=== PATIENT | female | born 1980 | race Caucasian/White ===

== ENCOUNTER → 2019-12-25 14:26 | Outpatient (CLI) | payer OTHER, SELFPAY ==
--- NOTE | ~2019-12-25 | MMUS_ITS ---
EXAMINATION: MM diagnostic jesse BI w estrellita, US breast RT limited HISTORY: Right breast lump TECHNIQUE: Bilateral full field ML, MLO and craniocaudal 3-D tomosynthesis images of both breasts and additional spot Tomosynthesis views of right breast were performed and synthetic 2-D images were gen erated. CAD analysis was submitted and interpreted. High resolution targeted right breast ultrasound was performed. COMPARISON: None BREAST PARENCHYMAL COMPOSITION: There are scattered areas of fibroglandular density. FINDINGS: MAMMOGRAPHIC FINDINGS: No suspicious mass, architectural distortion, malignant calcification, skin thickening or retraction of either breast is evident. ULTRASOUND: Targeted right breast ultrasound imaging at 3:00 5 cm from the nipple at the area of clinical complai nt of breast lump was performed. No suspicious mass, shadowing or cyst is evident. IMPRESSION: 1. No mammographic evidence of malignancy 2. Routine mammographic screening is recommended. BI-RADS Category 1: Negative Reviewed, dictated and finalized at location A. IMPRESSION: 1. No mammographic evidence of malignancy 2. Routine mammographic screening is recommended. BI-RADS Category 1: Negative
== END ==
PROVIDERS: PCP Family Medicine; Visit Provider Obstetrics & Gynecology Gynecology
DX: N63.10 Unspecified lump in the right breast, unspecified quadrant (principal)
CPT/HCPCS: 76642; 77062; 77066; G0279

== ENCOUNTER 2020-07-16 10:21 | Outpatient (CLI) | payer OTHER, SELFPAY ==
[2020-07-16 10:49] LABS: Hematocrit 39.3 % (37.0-47.0); Hemoglobin 13.4 g/dL (12.0-15.0); Mean Corpuscular HGB Conc 34.1 g/dl (32-36); Mean Corpuscular Hemoglobin 30.3 pg (26-34); Mean Corpuscular Volume 88.9 fl (80-100); Mean Platelet Volume 10.2 fl (7.4-10.4); Platelet Count Result 207 k/mm3 (150-375); Red Blood Count 4.42 M/mm3 (4.2-5.4); Red Cell Distribution Width 11.8 % (11.5-14.5); White Blood Count 5.9 K/mm3 (4.5-10.0)
[2020-07-16 11:34] LABS: Free T4 Free Thyroxine 0.96 ng/mL (0.78-2.19)
== END 2020-07-16 10:22 | disposition home or self-care (01) ==
PROVIDERS: PCP Family Medicine; Visit Provider Nurse Practitioner
DX: N92.0 Excessive and frequent menstruation with regular cycle (principal)
CPT/HCPCS: 36415; 84439; 84443; 85027

== ENCOUNTER → 2021-07-17 15:55 | Outpatient (CLI) | payer OTHER, SELFPAY ==
--- NOTE | ~2021-07-17 | US_ITS ---
EXAMINATION: US pelvic complete EXAM DATE: 07/17/2021 16:14 INDICATION: Excessive and frequent menstruation with regular cycle. TECHNIQUE: Pelvic transabdominal sonogram was performed. There are multiple grayscale and Doppler im ages available for interpretation. There is no prior study for comparison. FINDINGS: Uterus measures 9.5 x 5.2 x 6.0 cm, and is morphologically normal. Endometrial stripe benjamín sures 22 mm, mildly thickened. There is no free pelvic fluid. Right adnexa: The ovary measures 3.1 x 2.4 x 2.8 cm and is morphologically normal. Ovarian vascular f low confirmed. Left adnexa: The ovary measures 2.9 x 1.7 x 1.9 cm and is morphologically normal. Ovarian vascular fl ow confirmed. IMPRESSION: 1. Unremarkable pelvic ultrasound exam. Reviewed, dictated and finalized at location A.
== END ==
PROVIDERS: PCP Family Medicine; Visit Provider Obstetrics & Gynecology Gynecology
DX: N92.0 Excessive and frequent menstruation with regular cycle (principal)
CPT/HCPCS: 76856

== ENCOUNTER 2021-10-05 01:14 | Day surgery (SDC) | payer OTHER, SELFPAY ==
[2021-10-01 15:58] VITALS: BMI 22.4
--- NOTE | 2021-10-01 16:15 | PC.NURSE ---
Report to the Outpatient Waiting Room, entrance under the green pavilion located off [facility], at time _0915 on date _10/05/21. OR Time: 1115___. - You and your visitor will be asked a series of questions to screen for COVID 19 for your protection. - Only one visitor is allowed at this time. - The patient visitor is requested to leave or wait in car when not with patient. - A mask is required within the hospital. Patients may have clear liquids (water, carbonated beverages, clear teas, apple juice) until 3 hours prior to surgery with a maximum of 20 ounces. - No food from midnight until time of surgery - Infants may have breast milk until 4 hours before surgery, infant formula 6 hours prior to surgery. - Children will be allowed to drink immediately following surgery. If applicable, please bring a bottle or sippy cup to assist with drinking. Juice, water, soda, and popsicles are readily available. For infants on formula, please bring formula the day of surgery. Pacifiers are allowed. Take the following medications with a SIP of water the morning of surgery: n/a Medications to discontinue per physician vitamins_ Date to take last dose_10/02/21_ Please no make-up, nail nigerien, hairspray, perfume, deodorant, or body powder the day of surgery. No jewelry (including any body piercings) or valuables the day of surgery, leave them at home. Please take a shower or bath the night before, or the morning of, surgery with an antibacterial soap. Wear comfortable, loose fitting clothing. Children are encouraged to wear pajamas. - Jewelry must be removed prior to entering the operating room. Rings and piercings that are not removed may be cut off. - The hospital will not accept responsibility for valuables. - Please leave all valuables, including medications, at home the day of surgery. If you are going home after surgery, a licensed wedding transportation driver must drive you home. - NO public transportation without another adult. - We recommend that an adult stay with you for 24 hours following discharge. - We also recommend that you do not drive, make important decision, drink alcoholic beverages, or take any drugs that were not prescribed by your health care provider for at least 24 hours after your discharge time. For Pediatric surgeries, we recommend two adults accompany the child home (only one inside the building at this time). Follow any additional instructions given to you from your surgeon. If you or anyone in your household have experienced Covid symptoms in the past week, please notify your surgeon or the nurse liaison at the phone number below for possible testing. Telephone instructions given to Meena Bravo and asked if any additional questions and then verbalized understanding. Patient advised to call surgeon office or pre surgery nurse liaison [phone] if any additional questions.
--- NOTE | 2021-10-05 07:37 | WPDHPUPDATE1 ---
History and Physical Update Update Date/Time: 10/05/21 07:37 History and Physical has been reviewed, including an updated exam of the patient. There are NO changes in the patient's condition. Risks, benefits, and alternatives have been discussed and questions answered. Patient agrees to proceed with procedure.
--- NOTE | 2021-10-05 07:37 | PM.HPGS ---
History of Present Illness History of Present Illness Consent: Risks, benefits, and alternatives have been discussed and questions answered. Patient agrees to proceed with procedure. Chief complaint: Menorrhagia Narrative: Meena Bravo is a 41 year old female with menorrhagia. Patient changes her diva cup approximately every 3hours for 2 days and cycles are lasting approximately 10 days. In addition the patient has intermenstrual bleeding and bleeding after sex. Pelvic ultrasound was unremarkable however the endometrial stripe measured 22mm. It was recommended to proceed with further workup. Hysteroscopy D&C was reviewed. Risks of infection, bleeding, perforation, and possible pathology were reviewed. Patient agrees to proceed with plan. Review of Systems Review of Systems: not repeated day of surgery; patient states no changes in status [facility] Past Medical History Medical History (Updated 10/05/21 @ 07:40 by Shiela Saba MD) DVT (deep venous thrombosis) 2005 Factor 5 Leiden mutation, heterozygous (normal spontaneous vaginal delivery) X2 Surgical History Surgical History (Updated 10/05/21 @ 07:39 by Shiela Saba MD) H/O breast biopsy 2007 benign Family History Family History Father Hypertension Patient's father is in good health Mother Hypertension Patient's mother is in good health Grandparent Family history of cardiovascular disease Social History Social History (Updated 05/20/21 @ 16:01 by Corinne Israel CMA) Smoking packs per day: 1 Smoking cigarettes per day: 20.0 Years smoked: 8 Smoking pack-years: 8.00 Smoking status: Former smoker Tobacco type: cigarettes Second hand tobacco smoke exposure: No Smoking end date: 02/09/05 Alcohol intake: never Substance use: never Substance use type: does not use Last use: 10/01/2006 Living arrangements: with family Spiritual care concerns: No Meds Home Medications and Allergies Home Medications Medication Instructions Recorded Confirmed Type aspirin 81 mg tablet,delayed 81 mg PO DAILY 02/12/20 10/01/21 History release (Adult Aspirin Regimen) cetirizine 10 mg tablet (Zyrtec) 10 mg PO DAILY 02/12/20 10/01/21 History cholecalciferol (vitamin D3) 125 125 mcg PO DAILY 02/12/20 10/01/21 History mcg (5,000 unit) capsule olopatadine 0.1 % eye drops 1 drp ophthalmic (eye) .q6-8 hrs 02/12/20 10/01/21 History PRN Allergy Symptoms multivit with minerals-iron 18 1 tablet PO DAILY 10/01/21 10/01/21 History mg-folic ac 400 mcg-vit K 25 mcg tablet (Adults Multivitamin) Allergies Allergy/AdvReac Type Severity Reaction Status Date / Time No Known Allergies Allergy Verified 05/20/21 15:58 Exam Const: General: healthy appearing and alert Orientation/consciousness: patient oriented x3 Resp: Effort & Inspection: normal respiratory effort Auscultation: clear to auscultation bilaterally Cardio: Rate: regular rate Rhythm: regular rhythm GI: GI Palp: Yes Soft to palpation, No Tenderness to palpation present (GI) and No Palpable mass present : External Female Exam: normal external appearance Speculum Exam - Vagina: normal appearance of the vagina and normal vaginal discharge Speculum Exam - Cervix: normal appearance of the cervix Bimanual exam- vagina & uterus: uterine size normal and consistency normal Bimanual Exam- Adnexa, other: normal adnexae and No adnexal tenderness Neuro: General: patient oriented x3 Assessment and Plan Assessment and plan (1) Menorrhagia: Code(s): N92.0 - Excessive and frequent menstruation with regular cycle Status: Acute Assessment and Plan: Plan is to proceed with D&C hysteroscopy
[2021-10-05 09:34] VITALS: BP 125/72; PULSE 118; RESP 20; TEMP 36.8; O2SAT 99; BMI 22.8
[2021-10-05] MEDS: ACETAMINOPHEN 500 MG TABLET 1000 MG PO (09:43)
[2021-10-05] MEDS: ENOXAPARIN 40 MG/0.4 ML SYRINGE SUB-Q (09:44)
[2021-10-05] MEDS: LACTATED RINGERS 1,000 ML 30 ML IV CONT (09:54)
[2021-10-05 10:00] VITALS: PULSE 64
--- NOTE | 2021-10-05 10:25 | WPDANESEPPF ---
Anes - Initial Pre Proc Eval Procedure: Operation Date: 10/05/21 11:15 Proposed Procedures p Hysteroscopy with Dilation and Curettage - Shiela Saba MD Date/Time: 10/05/21 10:25 Surgeon: Shiela Saba MD Pre Op Diagnosis: Menorrhagia Patient Data Age: 41 Gender: F Height: 1.7 m Weight: 66 kg Last Vital Signs Temp 36.8 C 10/05/21 09:34 Pulse 118 H 10/05/21 09:34 Resp 20 10/05/21 09:34 BP 125/72 10/05/21 09:34 Pulse Ox 99 10/05/21 09:34 O2 Del Method Room Air 10/05/21 09:34 Allergies Allergy/AdvReac Type Severity Reaction Status Date / Time No Known Allergies Allergy Verified 10/05/21 09:40 Home Medications Medication Instructions Recorded Confirmed Type aspirin 81 mg tablet,delayed 81 mg PO DAILY 02/12/20 10/05/21 History release (Adult Aspirin Regimen) cetirizine 10 mg tablet (Zyrtec) 10 mg PO DAILY 02/12/20 10/05/21 History cholecalciferol (vitamin D3) 125 125 mcg PO DAILY 02/12/20 10/05/21 History mcg (5,000 unit) capsule olopatadine 0.1 % eye drops 1 drp ophthalmic (eye) .q6-8 hrs 02/12/20 10/05/21 History PRN Allergy Symptoms multivit with minerals-iron 18 1 tablet PO DAILY 10/01/21 10/05/21 History mg-folic ac 400 mcg-vit K 25 mcg tablet (Adults Multivitamin) Patient hx anesthesia problems: none Family hx anesthesia problems: none Results Review: All pre-operative results and documents have been reviewed as part of the pre-operative evaluation. PMFSH Past Medical History Medical History DVT (deep venous thrombosis) 2005 Factor 5 Leiden mutation, heterozygous (normal spontaneous vaginal delivery) X2 Surgical History Surgical History H/O breast biopsy 2007 benign Family History Family History Father Hypertension Patient's father is in good health Mother Hypertension Patient's mother is in good health Grandparent Family history of cardiovascular disease Social History Social History Smoking packs per day: 1 Smoking cigarettes per day: 20.0 Years smoked: 8 Smoking pack-years: 8.00 Smoking status: Former smoker Tobacco type: cigarettes Second hand tobacco smoke exposure: No Smoking end date: 02/09/05 Alcohol intake: never Substance use: never Substance use type: does not use Last use: 10/01/2006 Living arrangements: with family Spiritual care concerns: No Anes - Eval Final PreProcedure Day of Procedure 10/05/21 10:25 Patient weight: normal Heart: regular rate and rhythm Lungs: clear to auscultation Airway: Mallampati scale class II Neurological: alert and oriented Last oral intake: >/= 8 hours ASA classification: II Emergent: no Anesthetic plan: proceed Anesthesia type and monitoring: general GIVS and standard monitoring Results Review: All pre-operative results and documents have been reviewed as part of the pre-operative evaluation. Informed Consent: The patient's anesthetic plan and its attendant risks and benefits were discussed with the patient/family/POA. Questions were solicited and answers provided to the satisfaction of the patient/family/POA.
[2021-10-05] MEDS: SCOPOLAMINE 1.5 MG PATCH TRANSDERM (10:36)
--- NOTE | 2021-10-05 10:41 | SUR.PREOP ---
0930 PULSE 118 PER MONITOR, RECHECKED AT 1000, PULSE 64 AND REGULAR
--- NOTE | 2021-10-05 13:00 | W.PM.PROC2 ---
Procedure Note - Detailed Date of Procedure 10/05/21 Pre-op Diagnosis Menorrhagia Post-op Diagnosis Same Procedure Performed D&C hysteroscopy Surgeon Shiela Saba MD Anesthesia MAC and Local Findings uterus sounds to 9cm and appears grossly secretory Description of Procedure the patient is taken to the operating room and placed in the dorsal lithotomy position under anesthesia. She was prepped and draped in usual sterile fashion. [place] speculum was placed in the vagina and the cervix grasped on the anterior lip with a tenaculum. The cervix was injected in each quadrant with lidocaine. Uterus is sounded to 9cm. The cervix is serially dilated to an 8 Hegar. The diagnostic hysteroscope was placed with the stated findings. The hysteroscope was removed and the medium sharp curette used to curette the endometrium until a good uterine cry was noted in all areas. A large amount of tissue was obtained consistent with a secretory appearance. All instruments were then removed. Sponge, needle, and instrument counts are correct per the OR staff. Estimated Blood Loss 5 Drains No Packing No Pathology Yes ( Endometrial curettings) Complications No immediate complications Condition Stable Disposition PACU
[2021-10-05 13:05] VITALS: BP 106/68; PULSE 74; RESP 16; O2SAT 100
[2021-10-05 13:35] VITALS: BP 113/74; PULSE 70; RESP 16
== END 2021-10-05 14:05 | disposition home or self-care (01) ==
PROVIDERS: PCP Family Medicine; Visit Provider Obstetrics & Gynecology Gynecology
PROC: 0U5B8ZZ Destruction of Endometrium, Via Natural or Artificial Opening Endoscopic (ICD-10-PCS; CPT 58563; principal; 2021-10-05 11:15)
DX: N92.0 Excessive and frequent menstruation with regular cycle (principal); D68.51 Activated protein C resistance; Z86.718 Personal history of other venous thrombosis and embolism; Z79.82 Long term (current) use of aspirin; Z87.891 Personal history of nicotine dependence
CPT/HCPCS: 58558; 88305; A9270; J1100; J1650; J2250; J2405; J2704; J3010; J7030; J7120

== ENCOUNTER → 2022-02-16 07:19 | Outpatient (CLI) | payer OTHER, SELFPAY ==
--- NOTE | ~2022-02-16 | MM_ITS ---
EXAMINATION: MM screening jesse BI w estrellita HISTORY: Screening mammogram TECHNIQUE: Craniocaudal and mediolateral oblique 3-D tomosynthesis images were obtained and synthetic 2-D images were generated. Bilateral rotated lateral CC views. CAD analysis was submitted and interp reted. COMPARISON: 12/25/2019 limited right breast ultrasound and bilateral diagnostic mammography BREAST PARENCHYMAL COMPOSITION: There are scattered areas of fibroglandular density. FINDINGS: Stable mild fibroglandular asymmetry There is no evidence of suspicious mass, calcification , or architectural distortion to suggest malignancy in either breast. There has been no suspicious in terval change. IMPRESSION: 1. No mammographic evidence of malignancy. 2. Recommend routine screening mammography in one year. BI-RADS Category 1: Negative Reviewed, dictated and finalized at location A. N RESOURCES EXECUTIVE
== END ==
PROVIDERS: PCP Family Medicine; Visit Provider Nurse Practitioner
DX: Z12.31 Encounter for screening mammogram for malignant neoplasm of breast (principal)
CPT/HCPCS: 77063; 77067

== ENCOUNTER 2022-02-16 07:52 | Outpatient (CLI) | payer OTHER, SELFPAY ==
[2022-02-16 08:18] LABS: Hematocrit 39.7 % (37.0-47.0); Hemoglobin 13.4 g/dL (12.0-15.0); Mean Corpuscular HGB Conc 33.8 g/dl (32-36); Mean Corpuscular Hemoglobin 30.7 pg (26-34); Mean Corpuscular Volume 91.1 fl (80-100); Mean Platelet Volume 9.9 fl (7.4-10.4); Platelet Count Result 204 k/mm3 (150-375); Red Blood Count 4.36 M/mm3 (4.2-5.4); Red Cell Distribution Width 11.9 % (11.5-14.5); White Blood Count 5.6 K/mm3 (4.5-10.0)
[2022-02-16 08:46] LABS: Beta HCG Quantitative < 2.39 mIU/ML
[2022-02-16 09:12] LABS: Free T4 Free Thyroxine 0.94 ng/mL (0.78-2.19)
== END 2022-02-16 07:53 | disposition home or self-care (01) ==
PROVIDERS: PCP Family Medicine; Visit Provider Obstetrics & Gynecology Gynecology
DX: N93.9 Abnormal uterine and vaginal bleeding, unspecified (principal)
CPT/HCPCS: 36415; 84439; 84443; 84702; 85027

== ENCOUNTER 2022-06-26 08:32 | Outpatient (CLI) | payer OTHER, SELFPAY ==
[2022-06-26 09:37] LABS: Hematocrit 44.2 % (37.0-47.0); Hemoglobin 14.8 g/dL (12.0-15.0); Mean Corpuscular HGB Conc 33.5 g/dl (32-36); Mean Corpuscular Hemoglobin 30.7 pg (26-34); Mean Corpuscular Volume 91.7 fl (80-100); Mean Platelet Volume 10.1 fl (7.4-10.4); Platelet Count Result 199 k/mm3 (150-375); Red Blood Count 4.82 M/mm3 (4.2-5.4); White Blood Count 6.3 K/mm3 (4.5-10.0)
[2022-06-26 09:41] LABS: Alanine Aminotransferase 22 U/L (6-35); Albumin Level 4.6 g/dL (3.5-5.1); Alkaline Phosphatase 41 U/L (38-126); Anion Gap 6 mmol/L (8-16); Aspartate Amino Transferase 23 U/L (14-36); Bilirubin,Total 0.5 mg/dL (0.2-1.3); Blood Urea Nitrogen 12 mg/dL (7-17); Calcium 9.2 mg/dL (8.4-10.2); Carbon Dioxide 28 mmol/L (22-30); Chloride 109 mmol/L (98-107); Cholesterol 196 mg/dL (0-200); Estimated Glomerular Filt Rate > 60; Glucose 95 mg/dL (65-110); HDL Direct 60 mg/dL; Potassium 4.2 mmol/L (3.4-5.0); Sodium 143 mmol/L (137-145); Triglycerides 89 mg/dL (<150)
[2022-06-26 09:52] LABS: LDL Cholesterol Direct 112 mg/dL
== END 2022-06-26 08:33 | disposition home or self-care (01) ==
LOC: ANHLAB 08:33
PROVIDERS: PCP Family Medicine; Visit Provider Physician Assistant
DX: Z13.220 Encounter for screening for lipoid disorders (principal); Z13.1 Encounter for screening for diabetes mellitus; D68.51 Activated protein C resistance
CPT/HCPCS: 36415; 80053; 80061; 85027

== ENCOUNTER 2023-06-24 15:32 | Outpatient (CLI) | payer OTHER, SELFPAY ==
--- NOTE | ~2023-06-24 | MM_ITS ---
EXAMINATION: MM screening jesse BI w estrellita HISTORY: Screening mammogram TECHNIQUE: Craniocaudal and mediolateral oblique 3-D tomosynthesis images were obtained and synthetic 2-D images were generated. CAD analysis was submitted and interpreted. COMPARISON: 02/24/2022 bilateral screening mammogram 12/25/2019 bilateral diagnostic mammogram and limited right breast ultrasound BREAST PARENCHYMAL COMPOSITION: The breasts are heterogeneously dense, which may obscure small masses . FINDINGS: There is asymmetric density in the upper outer left breast. Diagnostic left mammogram is re commended, with ultrasound if required. Otherwise no suspicious mass, architectural distortion, malignant calcification, skin thickening or r etraction or significant new or developing density of either breast is noted. IMPRESSION: 1. Asymmetric increased density, upper outer left breast 2. Diagnostic left mammogram is recommended, with ultrasound if required BI-RADS Category 0: Incomplete: Needs additional imaging evaluation. Reviewed, dictated and finalized at location A.
== END 2023-06-24 15:33 ==
LOC: MICIMG 15:33
PROVIDERS: PCP Obstetrics & Gynecology Gynecology; Visit Provider Obstetrics & Gynecology Gynecology
DX: Z12.31 Encounter for screening mammogram for malignant neoplasm of breast (principal); R92.8 Other abnormal and inconclusive findings on diagnostic imaging of breast
CPT/HCPCS: 77063; 77067

== ENCOUNTER 2023-07-28 08:06 | Outpatient (CLI) | payer OTHER, SELFPAY ==
--- NOTE | ~2023-07-28 | MMUS_ITS ---
EXAMINATION: MM diagnostic jesse LT w estrellita, US breast LT limited HISTORY: Follow-up left breast asymmetry TECHNIQUE: Additional 3-D tomosynthesis images of the left breast were performed and synthetic 2-D im ages were generated. CAD analysis was submitted and interpreted. High resolution Limited left breast ultrasound was performed. COMPARISON: 06/23/2013 BREAST PARENCHYMAL COMPOSITION: Not dense: There are scattered areas of fibroglandular density. FINDINGS: MAMMOGRAPHIC FINDINGS: The areas of asymmetry are less apparent with spot compression views, likely superimposed fibroglandu lar content. No discrete mass is identified. There are no suspicious calcifications or focal architec tural distortion. ULTRASOUND: Limited left breast ultrasound: At 2:00, 7 cm from the nipple, there is a 4 mm cyst. At 12:00, 4 cm f rom the nipple, there are adjacent to millimeters cyst. No suspicious sonographic abnormalities to rangel ggest malignancy. IMPRESSION: 1. No evidence for malignancy in the left breast. Benign findings. 2. Routine yearly screening mammogram and regular clinical breast examination are recommended. BI-RADS Category 2: Benign finding(s). Reviewed, dictated and finalized at location A. IMPRESSION: 1. No evidence for malignancy in the left breast. Benign findings. 2. Routine yearly screening mammogram and regular clinical breast examination a re recommended. BI-RADS Category 2: Benign finding(s).
== END 2023-07-28 08:07 ==
LOC: MICIMG 08:07
PROVIDERS: PCP Obstetrics & Gynecology Gynecology; Visit Provider Obstetrics & Gynecology Gynecology
DX: R92.8 Other abnormal and inconclusive findings on diagnostic imaging of breast (principal)
CPT/HCPCS: 76642; 77061; 77065; G0279

== ENCOUNTER 2024-06-02 07:49 | Outpatient (CLI) | payer OTHER, SELFPAY ==
--- OUTSIDE RECORDS SUMMARY | 2024-06-02 07:53 | XMS_ITS | Clinical Summary ---
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 Surgical History Surgery Date Site/Laterality Comments BREAST BIOPSY Medical History Medical History Date Comments Frequent headaches Family History Medical History Relation Name Comments Non-Hodgkin's Lymphoma Maternal Grandfather Breast cancer Maternal Grandmother Skin cancer Paternal Grandfather Relation Name Status Comments Maternal Grandfather Maternal Grandmother Paternal Grandfather Social History Tobacco Use Types Packs/Day Years Used Date Smoking Tobacco: Former Personal Safety Answer Date Recorded Getting School Help Needed Not on file 06/24 Comments Unknown Sex and Gender Information Value Date Recorded Sex Assigned at Not on file Legal Sex Female 7:10 AM [employer] Gender Identity Not on file Sexual Orientation Not on file Obstetrics History Last Filed Vital Signs Vital Sign Reading Time Taken Comments Blood Pressure 107/63 06/06/2011 8:20 AM [employer] Pulse 79 06/06/2011 8:20 AM [employer] Temperature - - Respiratory Rate - - Oxygen Saturation 95% 06/04/2011 11:00 PM [employer] Inhaled Oxygen Concentration - - Weight 73 kg (160 lb 15 oz) 06/04/2011 9:[address] Height 170 cm (5' 6.93 ) 06/04/2011 9:19 AM [employer] Body Mass Index 25.26 06/04/2011 9:19 AM [employer] Plan of Treatment Not on file Insurance [address] [place], [place] [id number] Care Teams Cigarette Roller Relationship Specialty Start Date End Date Pilar Mederos MD PCP - General Family Medicine 08/22/20 Shiela Saba MD [address] [address] Referring Physician Gynecology 08/22/20
--- OUTSIDE RECORDS SUMMARY | 2024-06-02 07:53 | XMS_ITS | Patient Health Record ---
Author Organization [facility] Address [address] [place] [address] Care Team Providers Care Assessment Director Name Role Phone Pilar Mederos Primary Care Provider Latrice Benson Unavailable [phone] [employer], Provider Unavailable Unavailab le Allergies No Known Allergies Reason For Referral No Information Medications Medication SIG (Take, Route, Frequency, Duration) Notes Start Date End Date Status SLYND 4 mg 1 tab(s) orally once a day for 28 day(s) Active VITAMIN D3 25 mcg 1 tab(s) orally once a day for 30 day(s) Active ASPIRIN 81 mg 1 tab(s) orally once a day for 30 day(s) Active Olopatadine HCl 0.2 % 1 gtt in each affected eye once a day for 10 day(s) Active Montelukast Sodium 10 MG 1 tab(s) orally once a day (in the evening) for 30 day(s) Active PATADAY ONCE DAILY RELIEF 0.2% 1 GTT IN EACH AFFECTED EYE ONCE A DAY for 10 DAY(S) *Please review for potential replacement for e-prescription and drug interaction check* Active FLUTICASONE NASAL 50 mcg/inh 2 spray(s) in each nostril BID for 30 day(s) Active PROAIR HFA 90 MCG/INH 2 PUFF(S) INHALED EVERY 6 HOURS *Please review for potential replacement for e-prescription and drug interaction check* Active NASONEX 50 MCG/INH 2 SPRAY(S) INTRANASALLY ONCE A DAY for 30 DAY(S) *Please review for potential replacement for e-prescription and drug interaction check* Active CETIRIZINE 10 mg 1 tab(s) orally once a day for 30 days Active ZyrTEC Allergy 10 MG 1 tab(s) orally once a day Active Aspirin 81 MG 1 tab(s) orally once a day for 30 day(s) Active Cetirizine HCl 10 MG 1 tab(s) orally once a day for 30 days Active Slynd 4 MG 1 tab(s) orally once a day for 28 day(s) Active Fluticasone Propionate 50 MCG/ACT 2 spray(s) in each nostril BID for 30 day(s) Active Vitamin D3 25 MCG 1 tab(s) orally once a day for 30 day(s) Active NASAL WASHES N/A DIRECTED INTRANASALLY NEEDED for 30 *Please review for potential replacement for e-prescription and drug interaction check* Active ZYRTEC 10 mg 1 tab(s) orally once a day Active MONTELUKAST 10 mg 1 tab(s) orally once a day (in the evening) for 30 day(s) Active OLOPATADINE OPHTHALMIC 0.2% 1 gtt in each affected eye once a day for 10 day(s) Active Social History Tobacco Use: Social History Observation Description Date Details (start date - stop date) Former Smoker NA - NA Smoking Smart Form: Question Answer Notes Are you a: former smoker Problems Problem Type SNOMED Code ICD Code Onset Dates Problem Status W/U Status Risk Notes Problem 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 Problem Chronic allergic conjunctivitis (05434154) Other chronic allergic conjunctivitis (H10.45) Active confirmed Problem Allergic rhinitis caused by pollen (disorder) (08729829) Allergic rhinitis due to pollen (J30.1) Active confirmed Problem Allergic rhinitis (14984410) Other allergic rhinitis (J30.89) Active confirmed Problem Chronic rhinitis (61122817) Chronic rhinitis (J31.0) Active confirmed Problem Uncomplicated mild persistent asthma (472305948) Mild persistent asthma, uncomplicated (J45.30) Active confirmed Problem Uncomplicated moderate persistent asthma (758993250) Moderate persistent asthma, uncomplicated (J45.40) Active confirmed Problem Uncomplicated severe persistent asthma (668246507) Severe persistent asthma, uncomplicated (J45.50) Active confirmed Problem Atopic dermatitis (25598242) Atopic dermatitis, unspecified (L20.9) Active confirmed Problem Allergic rhinitis caused by animal hair and dander (609651489915536) Allergic rhinitis due to animal (cat) (dog) hair and dander (J30.81) Active confirmed Encounters Encounter Location Date Provider Diagnosis [address] [address] 09/24/2023 Provider Chidi Allergic rhinitis due to pollen J30.1 ; Other chronic allergic conjunctivitis H10.45 and Wheezing R06.2 Assessments Encounter Date Diagnosis (ICD Code) Assessment Notes Treatment Notes Treatment Clinical Notes Section Notes 09/24/2023 Allergic rhinitis due to pollen (ICD-10 - J30.1) 09/24/2023 Other chronic allergic conjunctivitis (ICD-10 - H10.45) 09/24/2023 Wheezing (ICD-10 - R06.2) Plan Of Treatment No Information Insurance Providers Payer Name Payer Address Payer Phone Subscriber Number Group Number Insured Name Patient Relationship to Insured Coverage Start Date Coverage End Date [employer] II [address] [place] [address] [id number] Meena Bravo Self - patient is the insured Medical (General) History Medical History History ICD Code Hereditary deficiency of other clotting factors D68.2 Surgical History Surgery Date(Month/Year) Breast biopsy 06/09/2017 Uterine biopsy 09/21/2021
--- OUTSIDE RECORDS SUMMARY | 2024-06-02 07:53 | XMS_ITS | Clinical Summary ---
Author Organization [facility] Administrative Offices Address [address] [place] [address] Care Team Providers Care Online Activist Name Role Phone Pilar Mederos MD Primary Care Provider [phone] Allergies No known active allergies Medications No known medications Active Problems No known active problems Resolved Problems Problem Noted Date Diagnosed Date Resolved Date Contractions 07/15/2009 07/16/2009 Labor Factor V Leiden ABpos GBSneg 07/15/2009 07/16/2009 Immunizations Immunization Administration Dates Next Due Influenza A (H1N1) Vaccine IM VFC 02/14/2009 Tdap Vaccine > 7 Yo IM VFC 07/16/2009 Family History Medical History Relation Name Comments Hypertension Father Cancer Maternal Grandfather Heart Disease Maternal Grandmother Hypertension Mother Breast Cancer Paternal Grandmother Relation Name Status Comments Father Maternal Grandfather Maternal Grandmother Mother Paternal Grandmother Social History Tobacco Use Types Packs/Day Years Used Date Smoking Tobacco: Former Alcohol Use Standard Drinks/Week Comments No 0 (1 standard drink = 0.6 oz pur e alcohol) Comments No Sex and Gender Information Value Date Recorded Sex Assigned at Not on file Legal Sex Female 5:48 AM BLENDING TANK HELPER Gender Identity Not on file Sexual Orientation Not on file Last Filed Vital Signs Vital Sign Reading Time Taken Comments Blood Pressure 118/70 06/12/2014 4:23 PM BLENDING TANK HELPER Pulse 98 07/17/2009 9:00 AM CDT Temperature 35.7 C (96.2 F) 07/17/2009 9:00 AM CDT Respiratory Rate 18 07/17/2009 9:00 AM CDT Oxygen Saturation 99% 06/23/2009 1:23 PM CDT Inhaled Oxygen Concentration - - Weight 64.4 kg (142 lb) 06/12/2014 4:26 PM BLENDING TANK HELPER Height 167.6 cm (5' 6 ) 06/12/2014 4:23 PM BLENDING TANK HELPER Body Mass Index 22.92 06/12/2014 4:23 PM BLENDING TANK HELPER Plan of Treatment Health Maintenance Due Date Last Done Comments HEPATITIS B VACCINES (1 of 3 - 19+ 3-dose series) 1999 CERVICAL CANCER SCREENING 06/12/20172014, 06/12/2014 DTAP/TDAP/TD VACCINES (2 - T d or Tdap) 07/17/2019 07/16/2009 BREAST CANCER SCREENING 2020 INFLUENZA VACCINE (#1) 2023 HPV VACCINES Aged Out No longer eligi ble based on patient's age to complete this topic PNEUMOCOCCAL VACCINE 0-64 YEARS Aged Out No longer eligible b ased on patient's age to complete this topic Procedures Procedure Name Priority Date/Time Associated Diagnosis Comments CERV/VAG CYTOPATH, THIN PREP AND HPV W/RFLX GENOTYPES 16, 18/45 Routine 06/12/2014 7:10 PM BLENDING TANK HELPER Routine gynecological examination from Last 3 Months or Most Recently Relevant to Health Maintenance Results * CERV/VAG CYTOPATH, THIN PREP AND HPV E6/E7 RFLX HPV 16, 18/45 (CP) (06/12/2014 7:10 PM BLENDING TANK HELPER) HPV E6/E7 Not Detected Not Detected [facility] Tag & See [facility] Comment: This test was performed using the APTIMA HPV Assay ([employer] This assay detects E6/E7 viral messenger RNA (mRNA) from 14 high-risk HPV types (16,18,31,33,35,39,45,51,52,56,58,59,66,68). Lab test performed by: [facility] [address] [place] [address] DOYLE GILBERT MD PAP INTERP Negative for intraepithelial lesion or malignancy. [facility] Tag [facility] See [facility] Comment: Performed by [facility], [address] [place] [address] Absorption Plant Operator Helper Pap Comment This Pap test has been evaluated with computer assisted technology. [facility] Tag [facility] See [facility] ADEQUACY: Satisfactory for evaluation. Endocervical/leong sformation zone component present. Age and/or menstrual status not provided [facility] Tag & See [facility] CLINICAL INFORMATION Information not provided [facility] LABORATORY SERVICES - [facility] SOURCE Information not provided [facility] PREV PAP: INFORMATION NOT PROVIDED [facility] BARREL CUTTER : MARK VILLANUEVA(ASCP) [facility] LABORATORY SERVICES - [facility] LAST MENSTRUAL PERIOD INFORMATION NOT PROVIDED [facility] SERVICES [facility] PREV BX: INFORMATION NOT PROVIDED [facility] Endocervical 06/12/2014 7:10 PM BLENDING TANK HELPER 06/13/2014 10:51 PM BLENDING TANK HELPER Comment:ENDOCERVICAL us Narciso Padron MD PATHOLOGY/CYTOLOGY ORDERABL ES Edited Result - Final [facility] SERVICES [facility] CLIA# [id number] [address] [place] [address] from Last 3 Months or Most Recently Relevant to Health Maintenance [place] [id number] [employer] Advance Directives For more information, please contact: [phone] * Full Code (Latest Code Status on File) Date Activated Date Inactivated Comments 07/15/2009 10:55 PM 07/17/2009 1:07 PM * Full Code Date Activated Date Inactivated Comments 07/15/2009 7:26 AM 07/15/2009 10:55 PM * Full Code Date Activated Date Inactivated Comments 07/15/2009 7:08 AM 07/15/2009 7:26 AM Care Teams Online Activist Relationship Specialty Start Date End Date Pilar Mederos MD [address] [place] [id number] PCP - General 01/16/09
--- OUTSIDE RECORDS SUMMARY | 2024-06-02 07:53 | XMS_ITS ---
Author Organization [facility] Address [address] [place] [address] Care Team Providers Care Manager Subway Name Role Phone Pilar Mederos Primary Care Provider UnavailLatrice Barnard Unavailable [phone] ZZ-Migration, Provider Unavailable Unavailab le REASON FOR VISIT Mult[facility] To [facility] Conversion Encounter Medications Medication SIG (Take, Route, Frequency, Duration) Notes Start Date End Date Status ZyrTEC Allergy 10 MG 1 tab(s) orally once a day Active Aspirin 81 MG 1 tab(s) orally once a day for 30 day(s) Active Slynd 4 MG 1 tab(s) orally once a day for 28 day(s) Active Fluticasone Propionate 50 MCG/ACT 2 spray(s) in each nostril BID for 30 day(s) Active NASAL WASHES N/A DIRECTED INTRANASALLY NEEDED for 30 *Please review for potential replacement for e-prescription and drug interaction check* Active Montelukast Sodium 10 MG 1 tab(s) orally once a day (in the evening) for 30 day(s) Active PATADAY ONCE DAILY RELIEF 0.2% 1 GTT IN EACH AFFECTED EYE ONCE A DAY for 10 DAY(S) *Please review for potential replacement for e-prescription and drug interaction check* Active PROAIR HFA 90 MCG/INH 2 PUFF(S) INHALED EVERY 6 HOURS *Please review for potential replacement for e-prescription and drug interaction check* Active NASONEX 50 MCG/INH 2 SPRAY(S) INTRANASALLY ONCE A DAY for 30 DAY(S) *Please review for potential replacement for e-prescription and drug interaction check* Active Cetirizine HCl 10 MG 1 tab(s) orally once a day for 30 days Active Olopatadine HCl 0.2 % 1 gtt in each affected eye once a day for 10 day(s) Active Vitamin D3 25 MCG 1 tab(s) orally once a day for 30 day(s) Active Encounters Encounter Location Date Provider Diagnosis [facility] [place] [address] 09/24/2023 Provider ELVA-Gonsalo Allergic rhinitis due to pollen J30.1 ; Other chronic allergic conjunctivitis H10.45 and Wheezing R06.2 Assessments Encounter Date Diagnosis (ICD Code) Assessment Notes Treatment Notes Treatment Clinical Notes Section Notes 09/24/2023 Allergic rhinitis due to pollen (ICD-10 - J30.1) 09/24/2023 Other chronic allergic conjunctivitis (ICD-10 - H10.45) 09/24/2023 Wheezing (ICD-10 - R06.2) Plan Of Treatment Medication Medication Name Sig Start Date Stop Date Notes Fluticasone Propionate 50 MCG/ACT 2 spray(s) in each nostril BID for 30 day(s) NASAL WASHES N/A DIRECTED INTRANASALLY NEEDED for 30 *Please review for potential replacement for e-prescription and drug interaction check* Montelukast Sodium 10 MG 1 tab(s) orally once a day (in the evening) for 30 day(s) PROAIR HFA 90 MCG/INH 2 PUFF(S) INHALED EVERY 6 HOURS *Please review for potential replacement for e-prescription and drug interaction check* Cetirizine HCl 10 MG 1 tab(s) orally onc e a day for 30 days Olopatadine HCl 0.2 % 1 gtt in each affe cted eye once a day for 10 day(s) Progress Notes * Declan YBARRAOB:1980 (44 yo F)Acc No.[id number]:09/24/2023 Patient: Meena PUENTES Provider: Shelli Brush :1980 A ge:43 Y S ex:Female Date:09/24/2023 Address:[address] [place], [place] [id number] Pcp:Pilar Mederos Subjective: * Chief Complaints: * 1 . Multum To [facility] Conversion Encounter. * Medical History: * Medications: T aking PATADAY ONCE DAILY RELIEF 0.2% SOLUTION 1 GTT IN EACH AFFECTED EYE ONCE A DAY , Notes to Pharmacist: *Please review for potential replacement for e-prescription and drug interaction check*, Taking NASONEX 50 MCG/INH SPRAY 2 SPRAY(S) INTRANASALLY ONCE A DAY , Notes to Pharmacist: *Please review for potential replacement for e-prescription and drug interaction check*, Taking ZyrTEC Allergy 10 MG Tablet 1 tab(s) orally once a day , Taking Aspirin 81 MG Tablet Delayed Release 1 tab(s) orally once a day , Taking Slynd 4 MG Tablet 1 tab(s) orally once a day , Taking Vitamin D3 25 MCG Tablet 1 tab(s) orally once a day Objective: * Vitals: Assessment: * Assessment: 1. A llergic rhinitis due to pollen - J30.1 (Primary) 2 . O ther chronic allergic conjunctivitis - H10.45 3 . W heezing - R06.2 Plan: * Treatment: 2. O ther chronic allergic conjunctivitis Continue Olopatadine HCl Solution, 0.2 %, 1 gtt, in each affected eye, once a day, 10 day(s). ? 3. W heezing Start Montelukast Sodium Tablet, 10 MG, 1 tab(s), orally, once a day (in the evening), 30 day(s), 30, Refills 2; C ontinue PROAIR HFA AEROSOL, 90 MCG/INH, 2 PUFF(S), INHALED, EVERY 6 HOURS, Notes to Pharmacist: *Please review for potential replacement for e-prescription and drug interaction check*. * Billing Information: * Visit Code: * Procedure Codes: * Electronic signature of Kathy STEVENSON-Migration on 06/02/2024 at 07:53 AM POLICE CHIEF DEPUTY Sign off status: Pending * Provider: Shelli paul Migration Date: 0 09/24/2023 Generated for Mago walker/Jackie/Kei on: 06/02/2024 07:53 AM POLICE CHIEF DEPUTY
--- OUTSIDE RECORDS SUMMARY | 2024-06-02 07:53 | XMS_ITS ---
Author Organization [facility] Address [address] [place] [address] Care Team Providers Care Raw Material Handler Name Role Phone Pilar Mederos Primary Care Provider Latrice Benson [phone] REASON FOR VISIT Cough follow-up Encounters Encounter Location Date Provider Diagnosis [facility] [address] [place] [address] 12/16/2022 Latrice Camacho Plan Of Treatment No Information Progress Notes * Declan YBARRAOB:1980 (44 yo F)Acc No.[id number]:12/16/2022 Progress Notes Patient: Meena PUENTES Provider: Chavez Camacho PA-C :1980 A ge:42 Y S ex:Female Date:12/16/2022 [facility] [id number] Pcp:Pilar Mederos Subjective: * Chief Complaints: * 1 . Cough follow-up. * Medical History: Objective: * Vitals: Assessment: Plan: * Treatment: * Billing Information: * Visit Code: * Procedure Codes: * Electronic signature of Bo Camacho PA-C, MPAS on 06/02/2024 at 07:53 AM PAPER BAG MAKING MACHINIST Sign off status: Pending * Provider: Chavez Camacho PA-C Date: 0 12/16/2022 Generated for Julianei denise/Fashante/eTransmitting on: 0 06/02/2024 07:53 AM PAPER BAG MAKING MACHINIST
--- OUTSIDE RECORDS SUMMARY | 2024-06-02 07:53 | XMS_ITS | Clinical Summary ---
Author Organization [facility] Address [address] [place] [address] Care Team Providers Care Care Giver Name Role Phone Unavailable Primary Care Provider Unavailabl e Social History Tobacco Use Types Packs/Day Years Used Date Smoking Tobacco: Never Assessed Comments Unknown Sex and Gender Information Value Date Recorded Sex Assigned at Not on file Legal Sex Female 6:48 PM CDT Gender Identity Not on file Sexual Orientation Not on file Plan of Treatment Health Maintenance Due Date Last Done Comments Cervical Cancer Screening Pa p Smear (Age 30 to 64) Every 3 Years 1980 Annual Physical 1983 Hepatitis C 1998 DTaP, Tdap and Td Vaccines ( 1 - Tdap) 1999 Hepatitis B Vaccines (1 of 3 - 19+ 3-dose series) 1999 Cervical Cancer Screening Pa p with HPV Testing (Age 30 to 64) Every 5 Years 2010 Cervical Cancer Screening with HPV 2010 Mammogram Screening 2020 COVID-19 Vaccine (2023-2 5 season) 2023 Influenza Adult (#1) 2024 HPV Vaccines Aged Out No longer eligi ble based on patient's age to complete this topic Meningococcal B Vaccine Aged Out No l onger eligible based on patient's age to complete this topic Meningococcal Vaccine Aged Out No mino ephraim eligible based on patient's age to complete this topic Pneumococcal Vaccine: Pediat rics (0 to 5 Years) and At-Risk Patients (6 to 64 Years) Aged Out No longer eligible b ased on patient's age to complete this topic RSV Immunizations Under 20 Months Aged Out No longer eligible based on patient's age to complete this topic
--- OUTSIDE RECORDS SUMMARY | 2024-06-02 07:53 | XMS_ITS | Referral Summary ---
Author Organization [facility] Address [address] [place] [address] Care Team Providers Care Belt Sander Name Role Phone Pilar Mederos MD Primary Care Provider [phone] Shiela Saba MD Unavailable [phone] Allergies No known active allergies Medications aspirin 81 MG oral suspension 06/25/2019 Active cetirizine (ZyrTEC) 10 mg capsule 06/09/2020 Active cholecalciferol (Vitamin D3) 400 unit capsule 04/11/2020 Active Active Problems Problem Noted Date Diagnosed Date High-risk 12/21/2010 Thrombophilia 11/16/2010 Social History Tobacco Use Types Packs/Day Years Used Date Smoking Tobacco: Former Personal Safety Answer Date Recorded Getting School Help Needed Not on file 06/24 Comments Unknown Sex and Gender Information Value Date Recorded Sex Assigned at Not on file Legal Sex Female 7:10 AM SUPERVISOR FUSING ROOM Gender Identity Not on file Sexual Orientation Not on file Last Filed Vital Signs Vital Sign Reading Time Taken Comments Blood Pressure 107/63 06/06/2011 8:20 AM SUPERVISOR FUSING ROOM Pulse 79 06/06/2011 8:20 AM SUPERVISOR FUSING ROOM Temperature - - Respiratory Rate - - Oxygen Saturation 95% 06/04/2011 11:00 PM SUPERVISOR FUSING ROOM Inhaled Oxygen Concentration - - Weight 73 kg (160 lb 15 oz) 06/04/2011 9:[address] Height 170 cm (5' 6.93 ) 06/04/2011 9:19 AM SUPERVISOR FUSING ROOM Body Mass Index 25.26 06/04/2011 9:19 AM SUPERVISOR FUSING ROOM Plan of Treatment Not on file Insurance HEALTHCARE O Care Teams Belt Sander Relationship Specialty Start Date End Date Pilar Mederos MD PCP - General Family Medicine 08/22/20 Shiela Saba MD [address] [address] Referring Physician Gynecology 08/22/20
[2024-06-02 08:16] LABS: Basophils Percent Auto 0.5 % (0.2-1.2); Eosinophils Absolute Auto 0.2 K/mm3 (0-0.3); Eosinophils Percent Auto 4.2 % (0-4.4); Hematocrit 42.4 % (37.0-47.0); Hemoglobin 14.1 g/dL (12.0-15.0); Immature Granulocyte Absolute 0.02 K/mm3 (0.00-0.031); Immature Granulocyte Percent A 0.3 % (0-0.5); Lymphocytes Percent Auto 31.1 % (18.3-44.2); Mean Corpuscular HGB Conc 33.3 g/dl (32-36); Mean Corpuscular Hemoglobin 30.2 pg (26-34); Mean Corpuscular Volume 90.8 fl (80-100); Mean Platelet Volume 10.1 fl (7.4-10.4); Monocytes Absolute Auto 0.3 K/mm3 (0.1-0.6); Monocytes Percent Auto 5.5 % (2.6-8.5); Neutrophils Absolute Auto 3.4 K/mm3 (1.3-6.7); Neutrophils Percent Auto 58.4 % (45.5-73.1); Platelet Count Result 176 k/mm3 (150-375); Red Blood Count 4.67 M/mm3 (4.2-5.4); Red Cell Distribution Width 11.8 % (11.5-14.5); White Blood Count 5.8 K/mm3 (4.5-10.0)
[2024-06-02 08:21] LABS: Alanine Aminotransferase 20 U/L (6-35); Albumin Level 4.3 g/dL (3.5-5.1); Alkaline Phosphatase 49 U/L (38-126); Anion Gap 9 mmol/L (4-12); Aspartate Amino Transferase 22 U/L (14-36); Bilirubin,Total 0.6 mg/dL (0.2-1.3); Blood Urea Nitrogen 13 mg/dL (7-17); Carbon Dioxide 26 mmol/L (22-30); Chloride 106 mmol/L (98-107); Cholesterol 183 mg/dL (0-200); Estimated Glomerular Filt Rate > 60; Glucose 89 mg/dL (65-110); HDL Direct 49 mg/dL; Potassium 4.3 mmol/L (3.4-5.0); Sodium 141 mmol/L (137-145); Triglycerides 80 mg/dL (<150)
[2024-06-02 08:32] LABS: LDL Cholesterol Direct 109 mg/dL
[2024-06-02 09:41] LABS: Hemoglobin A1C 5.2 % (<5.7)
== END 2024-06-02 07:50 | disposition home or self-care (01) ==
LOC: ANHLAB 07:50
PROVIDERS: PCP Family Medicine; Visit Provider Family Medicine
DX: E78.2 Mixed hyperlipidemia (principal); Z00.00 Encounter for general adult medical examination without abnormal findings; D64.9 Anemia, unspecified; Z13.1 Encounter for screening for diabetes mellitus; R53.83 Other fatigue
CPT/HCPCS: 36415; 80053; 80061; 83036; 84443; 85025

== ENCOUNTER 2024-07-13 15:26 | Outpatient (CLI) | payer OTHER, SELFPAY ==
--- NOTE | ~2024-07-13 | MM_ITS ---
EXAMINATION: MM screening jesse BI w estrellita HISTORY: Screening TECHNIQUE: Craniocaudal and mediolateral oblique 3-D tomosynthesis images were obtained and synthetic 2-D images were generated. CAD analysis was submitted and interpreted. COMPARISON: Comparison to multiple prior studies sequentially, with oldest reviewed study dated 12/24. BREAST PARENCHYMAL COMPOSITION: Not dense: There are scattered areas of fibroglandular density. FINDINGS: There is no evidence of suspicious mass, calcification, or architectural distortion to sugg est malignancy in either breast. There has been no suspicious interval change. IMPRESSION: 1. No mammographic evidence of malignancy. 2. Recommend routine screening mammography in one year. BI-RADS Category 1: Negative Reviewed, dictated and finalized at location A.
== END 2024-07-13 15:27 | disposition home or self-care (01) ==
LOC: MICIMG 15:27
PROVIDERS: PCP Obstetrics & Gynecology; Visit Provider Obstetrics & Gynecology Gynecology
DX: Z12.31 Encounter for screening mammogram for malignant neoplasm of breast (principal)
CPT/HCPCS: 77063; 77067

== ENCOUNTER 2024-09-27 16:46 | Outpatient (CLI) | payer OTHER, SELFPAY ==
--- OUTSIDE RECORDS SUMMARY | 2024-09-27 16:49 | XMS_ITS | Referral Summary ---
Author Organization [facility] Address [address] [place] [address] Care Team Providers Care Optical Goods Drill Operator Name Role Phone Pilar Mederos MD Primary Care Provider [phone] Shiela Saba MD Unavailable [phone] Allergies No known active allergies Medications aspirin [...] on file Legal Sex Female 7:10 AM MICROSOFT DYNAMICS AX CONSULTANT Gender Identity Not on file Sexual Orientation Not on file Last Filed Vital Signs Vital Sign Reading Time Taken Comments Blood Pressure 107/63 06/06/2011 8:20 AM MICROSOFT DYNAMICS AX CONSULTANT Pulse 79 06/06/2011 8:20 AM MICROSOFT DYNAMICS AX CONSULTANT Temperature - - Respiratory Rate - - Oxygen Saturation 95% 06/04/2011 11:00 PM MICROSOFT DYNAMICS AX CONSULTANT Inhaled Oxygen Concentration - - Weight 73 kg (160 lb 15 oz) 06/04/2011 9:[address] Height 170 cm (5' 6.93) 06/04/2011 9:19 AM MICROSOFT DYNAMICS AX CONSULTANT Body Mass Index 25.26 06/04/2011 9:19 AM MICROSOFT DYNAMICS AX CONSULTANT Plan of Treatment Not on file Insurance HEALTHCARE O Care Teams Optical Goods Drill Operator Relationship Specialty Start Date End Date Pilar Mederos MD PCP - General Family Medicine 08/22/20 Shiela Saba MD [address] [address] Referring Physician Gynecology 08/22/20
--- OUTSIDE RECORDS SUMMARY | 2024-09-27 16:49 | XMS_ITS | Clinical Summary ---
Author Organization [facility] Address [address] [place] [address] Care Team Providers Care Blind Slat Stapling Machine Operator Name Role Phone Pilar Mederos MD Primary Care Provider [phone] Shilea Saba MD Unavailable [phone] Allergies No known active allergies Medications aspirin [...] on file Legal Sex Female 7:10 AM DIETARY AID Gender Identity Not on file Sexual Orientation Not on file Obstetrics History Last Filed Vital Signs Vital Sign Reading Time Taken Comments Blood Pressure 107/63 06/06/2011 8:20 AM DIETARY AID Pulse 79 06/06/2011 8:20 AM DIETARY AID Temperature - - Respiratory Rate - - Oxygen Saturation 95% 06/04/2011 11:00 PM DIETARY AID Inhaled Oxygen Concentration - - Weight 73 kg (160 lb 15 oz) 06/04/2011 9:[address] Height 170 cm (5' 6.93) 06/04/2011 9:19 AM DIETARY AID Body Mass Index 25.26 06/04/2011 9:19 AM DIETARY AID Plan of Treatment Not on file Insurance [address] [place], [place] [id number] Care Teams Blind Slat Stapling Machine Operator Relationship Specialty Start Date End Date Pilar Mederos MD PCP - General Family Medicine 08/22/20 Shiela Saba MD [address] [address] Referring Physician Gynecology 08/22/20
--- OUTSIDE RECORDS SUMMARY | 2024-09-27 16:49 | XMS_ITS | Clinical Summary ---
Author Organization [facility] Administrative Offices Address [address] [place] [address] Care Team Providers Care Ethylbenzene Converter Helper Name Role Phone Pilar Mederos MD Primary Care Provider [phone] Allergies No known active allergies Medications No [...] on file Legal Sex Female 5:48 AM DIRECTOR INDEX Gender Identity Not on file Sexual Orientation Not on file Last Filed Vital Signs Vital Sign Reading Time Taken Comments Blood Pressure 118/70 06/12/2014 4:23 PM DIRECTOR INDEX Pulse 98 07/17/2009 9:00 AM CDT Temperature 35.7 C (96.2 F) 07/17/2009 9:00 AM CDT Respiratory Rate 18 07/17/2009 9:00 AM CDT Oxygen Saturation 99% 06/23/2009 1:23 PM CDT Inhaled Oxygen Concentration - - Weight 64.4 kg (142 lb) 06/12/2014 4:26 PM DIRECTOR INDEX Height 167.6 cm (5' 6) 06/12/2014 4:23 PM DIRECTOR INDEX Body Mass Index 22.92 06/12/2014 4:23 PM DIRECTOR INDEX Plan of Treatment Health Maintenance Due Date Last Done Comments HEPATITIS B VACCINES (1 of 3 - 19+ 3-dose series) 1999 PAP SMEAR 06/12/2017 06/12/2014, 06/12/2014 CERVICAL CANCER SCREENING 06/13/2019 HPV/Cotest (21-29) 06/13/2019 06/12/2014 HPV/Cotest (30-65) 06/13/2019 06/12/2014 DTAP/TDAP/TD VACCINES (2 - Td or Tdap) 07/17/2019 07/16/2009 BREAST CANCER SCREENING 2020 INFLUENZA VACCINE (#1) 2023 HPV VACCINES Aged Out No longer eligi ble based on patient's age to complete this topic Procedures Procedure Name Priority Date/Time Associated Diagnosis Comments CERV/VAG CYTOPATH, THIN PREP AND HPV W/RFLX GENOTYPES 16, 18/45 Routine 06/12/2014 7:10 PM DIRECTOR INDEX Routine gynecological examination from Last 3 Months or Most Recently Relevant to Health Maintenance Results * CERV/VAG CYTOPATH, THIN PREP AND HPV E6/E7 RFLX HPV 16, 18/45 (CP) (06/12/2014 7:10 PM DIRECTOR INDEX) HPV E6/E7 Not Detected Not Detected [facility] [employer] [facility] Comment: This test was performed using the APTIMA HPV Assay ([employer] This assay detects E6/E7 viral messenger RNA (mRNA) from 14 high-risk HPV types (16,18,31,33,35,39,45,51,52,56,58,59,66,68). Lab test performed by: [facility] [address] [place] [address] DOYLE GILBERT MD PAP INTERP Negative for intraepithelial lesion or malignancy. [facility] [employer] [facility] Comment: Performed by [facility], [address] [place] [address] Rug Sizer Pap Comment This Pap test has been evaluated with computer assisted technology. [facility] [employer] [facility] ADEQUACY: Satisfactory for evaluation. Endocervical/leong sformation zone component present. Age and/or menstrual status not provided [facility] CLINICAL INFORMATION Information not provided [facility] SOURCE Information not provided [facility] PREV PAP: INFORMATION NOT PROVIDED [facility] - [facility] TRANSFORMATION SPECIALIST : MARK VILLANUEVA(ASCP) [facility] - [facility] LAST MENSTRUAL PERIOD INFORMATION NOT PROVIDED [facility] PREV BX: INFORMATION NOT PROVIDED [facility] - [facility] Endocervical 06/12/2014 7:10 PM DIRECTOR INDEX 06/13/2014 10:51 PM DIRECTOR INDEX Comment:ENDOCERVICAL us Narciso Padron MD PATHOLOGY/CYTOLOGY ORDERABL ES Edited Result - Final [facility] CLIA# [id number] [address] [place] [address] from Last 3 Months or Most Recently Relevant to Health Maintenance [place] [id number] [employer] Advance Directives For more information, please contact: [phone] * Full Code (Latest Code Status on File) Date Activated Date Inactivated Comments 07/15/2009 10:55 PM 07/17/2009 1:07 PM * Full Code Date Activated Date Inactivated Comments 07/15/2009 7:26 AM 07/15/2009 10:55 PM * Full Code Date Activated Date Inactivated Comments 07/15/2009 7:08 AM 07/15/2009 7:26 AM Care Teams Ethylbenzene Converter Helper Relationship Specialty Start Date End Date Pilar Mederos MD [address] [place] [id number] PCP - General 01/16/09
--- OUTSIDE RECORDS SUMMARY | 2024-09-27 16:49 | XMS_ITS | Clinical Summary ---
Author Organization [facility] Address [address] [place] [address] Care Team Providers Care Launch Steward Name Role Phone Unavailable Primary Care Provider [...] 2020 COVID-19 Vaccine (2023-2 5 season) 2023 HPV Vaccines Aged Out No longer eligi ble based on patient's age to complete this topic Meningococcal B Vaccine Aged Out No l onger eligible based on patient's age to complete this topic Meningococcal Vaccine Aged Out No mino ephraim eligible based on patient's age to complete this topic Pneumococcal Vaccine: Pediat rics (0 to 5 Years) and At-Risk Patients (6 to 49 Years) Aged Out No longer eligible b ased on patient's age to complete this topic RSV Immunizations Under 20 Months Aged Out No longer eligible based on patient's age to complete this topic
[2024-09-27 17:12] LABS: Basophils Percent Auto 0.3 % (0.2-1.2); Eosinophils Absolute Auto 0.3 K/mm3 (0-0.3); Eosinophils Percent Auto 3.6 % (0-4.4); Hematocrit 43.3 % (37.0-47.0); Hemoglobin 14.1 g/dL (12.0-15.0); Immature Granulocyte Absolute 0.03 K/mm3 (0.00-0.031); Immature Granulocyte Percent A 0.4 % (0-0.5); Lymphocytes Absolute Auto 1.76 K/mm3 (0.9-3.2); Lymphocytes Percent Auto 23.3 % (18.3-44.2); Mean Corpuscular HGB Conc 32.6 g/dl (32-36); Mean Corpuscular Volume 92.1 fl (80-100); Mean Platelet Volume 10.6 fl (7.4-10.4); Monocytes Absolute Auto 0.4 K/mm3 (0.1-0.6); Neutrophils Absolute Auto 5.1 K/mm3 (1.3-6.7); Neutrophils Percent Auto 67.4 % (45.5-73.1); Platelet Count Result 209 k/mm3 (150-375); Red Cell Distribution Width 11.9 % (11.5-14.5); White Blood Count 7.6 K/mm3 (4.5-10.0)
[2024-09-27 17:39] LABS: Beta HCG Quantitative < 2.39 mIU/ML
[2024-09-27 18:19] LABS: Iron 92 ug/dL (37-170)
[2024-09-27 18:29] LABS: Percent Iron Saturation 28 % (20-50)
[2024-09-28 05:23] LABS: Progesterone. 0.5 ng/mL
[2024-09-28 20:34] LABS: Prolactin. 7.5 ng/mL
[2024-10-02 12:39] LABS: Testosterone Free 0.7 pg/mL (0.1-6.4); Testosterone Total 6 ng/dL (2-45)
== END 2024-09-27 16:47 | disposition home or self-care (01) ==
LOC: ANHLAB 16:47
PROVIDERS: PCP Obstetrics & Gynecology; Visit Provider Obstetrics & Gynecology
DX: N92.0 Excessive and frequent menstruation with regular cycle (principal)
CPT/HCPCS: 36415; 82670; 82728; 83001; 83540; 83550; 84144; 84146; 84270; 84402; 84403; 84443; 84702; 85025

== ENCOUNTER 2025-01-01 15:58 | Outpatient (CLI) | payer OTHER, SELFPAY ==
--- OUTSIDE RECORDS SUMMARY | 2025-01-01 16:02 | XMS_ITS | Clinical Summary ---
Author Organization [facility] Address [address] [place] [id number] Care Team Providers Care Child Support Specialist Name Role Phone Unavailable Primary Care Provider [...] of 3 - 19+ 3-dose series) 1999 HPV Vaccines (1 - 3-dose SCD M series) 2007 Cervical Cancer Screening Pa p with HPV Testing (Age 30 to 64) Every 5 Years 2010 Cervical Cancer Screening with HPV 2010 Mammogram Screening 2020 COVID-19 Vaccine (2023-2 5 season) 2024 Meningococcal B Vaccine Aged Out No l [...]
[2025-01-01 16:55] LABS: Beta HCG Quantitative < 2.39 mIU/ML
== END 2025-01-01 15:59 | disposition home or self-care (01) ==
LOC: ANHLAB 15:59
PROVIDERS: PCP Family Medicine; Visit Provider Obstetrics & Gynecology
DX: N92.0 Excessive and frequent menstruation with regular cycle (principal)
CPT/HCPCS: 36415; 84702